=== PATIENT | male | born 1990 | race Caucasian/White ===

== ENCOUNTER 2016-09-06 21:05 | Emergency (ER) | payer OTHER ==
--- NOTE | 2016-09-06 22:20 | XRAY Preliminary Report ---
Exam: XR Ankle 3 View RT IMPRESSION: Normal ankle radiography. [facility] SITE ID: [id number]
--- NOTE | 2016-09-06 22:22 | XRAY Report ---
EXAM: RIGHT ANKLE RADIOGRAPHY EXAM DATE: 09/06/2016 09:44 PM. CLINICAL HISTORY: Rolled ankle hardly able to bear weight. COMPARISON: None. TECHNIQUE: 3 views. FINDINGS: Bones: Normal. No fractures or bone lesions. Joints: Normal. No effusion. No subluxations. The ankle mortise is normally aligned. Soft Tissues: Normal. No soft tissue swelling. IMPRESSION: Normal ankle radiography. [facility] Referring Provider Line: [phone] SITE ID: [id number]
[2016-09-06] MEDS ORDERED: IBUPROFEN 600 MG TABLET PO STA (22:55)
[2016-09-06] MEDS ORDERED: ACETAMINOPHEN 325 MG TABLET PO STA (22:55)
[2016-09-06] MEDS ORDERED: ACETAMINOPHEN 325 MG TABLET PO ONE (23:00)
[2016-09-06] MEDS ORDERED: IBUPROFEN 600 MG TABLET PO ONE (23:00)
--- NOTE | 2016-09-06 23:02 | ED Physician Documentation ---
PD HPI LOWER EXT INJURY - Stated complaint Stated Complaint: R ANKLE INJ - Chief complaint Chief Complaint: Ext Problem - History obtained from History obtained from: Patient - History of Present Illness PD HPI LOW EXT INJURY LOCATION: Right, Ankle Type of injury: Twist Timing - onset: Today Timing - details: Abrupt onset, Still present Worsened by: Moving, Palpating, Other (walking) Associated symptoms: Swelling. No: Weakness, Numbness Similar symptoms before: Has not had sx before Recently seen: Not recently seen Review of Systems Constitutional: denies: Fever, Chills Skin: denies: Abrasion (s), Laceration (s) Neurologic: denies: Focal weakness, Numbness PD PAST MEDICAL HISTORY - Past Medical History Cardiovascular: None Respiratory: None Neuro: None Endocrine/Autoimmune: None GI: None : None HEENT: None Psych: None Musculoskeletal: None Derm: None - Past Surgical History Past Surgical History: No - Present Medications Home Medications: Ambulatory Orders Medication Instructions Recorded Confirmed No Known Home Medications [No 09/06/16 09/06/16 Known Home Medications] - Allergies Allergies/Adverse Reactions: Allergies Allergy/AdvReac Type Severity Reaction Status Date / Time No Known Drug Allergies Allergy Verified 09/06/16 21:13 - Social History Does the pt smoke?: No Smoking Status: Former smoker Does the pt drink ETOH?: Yes Does the pt have substance abuse?: No - Immunizations Immunizations are current?: Yes PD ED PE NORMAL - Vitals Vital signs reviewed: Yes - General General: Alert and oriented X 3, No acute distress, Well developed/nourished - HEENT HEENT: Atraumatic - Neck Neck: Supple, no meningeal sign, No bony TTP - Derm Derm: Normal color, Warm and dry - Extremities Extremities: Other (right ankle with lateral swelling. Achilles not tender. Normal color and cap refill in toes. Foot distally not tender. No gross laxity on stress testing.) - Neuro Neuro: Alert and oriented X 3, No motor deficit, No sensory deficit, Normal speech Results - Vitals Vitals: Oxygen O2 Source Room air - Rads (name of study) ankle Radiology: Prelim report reviewed (no fractures), EMP read contemporaneously ( no fracture) PD MEDICAL DECISION MAKING - ED course Complexity details: reviewed results, considered differential, d/w patient Departure - Departure Disposition: Home, Self Care Clinical Impression: Ankle sprain Qualifiers: Encounter type: initial encounter Involved ligament of ankle: other ligament Laterality: right Qualified Code(s): S93.491A - Sprain of other ligament of right ankle, initial encounter Condition: Stable Record reviewed to determine appropriate education?: Yes Instructions: ED Sprain Ankle W X Ray Follow-Up: ROSEY Hernandes [Provider Group] Comments: Ankle brace when up and around for 2-3 weeks until fully healed. Crutches as needed initially for pain, and progress weight bearing as able. Ibuprofen 3 times daily, and add Tylenol if needed. Recheck if not better over the next several days to a week. Forms: Activity restrictions Discharge Date/Time: 09/06/16 23:05
[2016-09-06 23:10] VITALS: BP 144/74
== END 2016-09-06 23:05 | disposition home or self-care (01) ==
LOC: ED 21:05
DX: S93.401A Sprain of unspecified ligament of right ankle, initial encounter (principal); Z87.891 Personal history of nicotine dependence
CPT/HCPCS: 73610; 99282; 99283; A9270

== ENCOUNTER 2022-06-30 10:17 | Outpatient (CLI) | payer OTHER ==
[2022-06-30 11:02] VITALS: BP 150/100
--- NOTE | 2022-06-30 11:02 | SLEEP CARE CONSULTATION ---
Information from patient questionnaire entered by Ayde Sheth. I have reviewed and concur with the information entered by Ayde Sheth. This document represents the service I personally performed and the decisions made by me, Angie Rojas ARNP. History of Present Illness Service Date and Time: 06/30/2022 1017 Reason for Visit: New patient Chief Complaint: reports: Unrefreshed sleep, Snoring, Observed pauses in breathing, Frequent awakenings at night Date of Onset: 3-4YRS Usual bedtime: 10PM Time it takes to fall asleep: 30-60MIN Snores at night: Yes Observed to quit breathing while asleep: Yes Sleeps alone due to snoring: No Number of times waking at night: 5+ Reasons for waking at night: reports: Gasping for air, Other (UNKNOWN; temperature). denies: Choking, Snoring Toss, Turn, or Twitch while sleeping: Yes Recalls having dreams: Yes Usually gets out of bed at: 6AM; weekends 0800 Feels refreshed in the morning: No Morning headache: Yes (3 days a week; last about an hour) Sleepy or fatigued during the day: Yes Ever fallen asleep while driving: No Takes day naps: Yes (only on weekends for 30-60 minutes) Dreams during day naps: No Prior sleep studies: Yes Year and Where: 10/2018 [facility] Additional HPI information: I had the pleasure of seeing NAN MELENDEZ today regarding the possibility of him having a sleep disorder. His current complaints are unrefreshed sleep, snoring, observed pauses in breathing and frequent night awakenings. He states he has had a previous sleep study in about 2018 and was placed on a CPAP machine. 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 He has not used it since about 2019. His sleep is not as regenerative as it has been in the past. He snores but his girlfriend states it is not every night. She has noted some pauses in breathing. She can still sleep in same room. - Parasomnia Symptoms Ever been unable to move upon waking from sleep: Yes (2-3 times in life) Walks in sleep: Yes (not for a "while") Talks in sleep: Yes Ever acted out dreams in sleep: No Ever felt weak in the knees when startled or emotional: No Bothered by creepy, crawly, restless sensations in legs: Yes (leg moving in bed, without conciously doing it) Problems with memory or concentration: Yes (both; concentration worse, hx of ADHD) Subjective Initial Troutman Sleepiness Scale score: 8 (06/25/22) Past Medical History Past Medical History: reports: Anxiety, Depression, Attention deficit Social History The patient's occupation is a AM. Patient is Single and lives in . Have you smoked in the past 12 months: No Alcohol use: Yes Alcohol amount and frequency: 2-3 BEERS 1-2 X MONTH Caffeine use: Yes Caffeine amount and frequency: 2-3 DAILY Family History Family history of sleep disordered breathing: Yes Family Hx Sleep Apnea: Father: Snoring, Sleep apnea - Untreated, Sibling: Snoring, Sleep apnea - Untreated, Grandparent: Snoring, Sleep apnea - Untreated Allergies and Home Medications Known drug allergies: No Drug allergies reviewed: Yes Home medication list reviewed: Yes Allergy and home medication list: Allergies No Known Drug Allergies Allergy (Verified 06/29/22 13:30) Medications: Adderall ER 20 mg, daily Review of Systems Weight gain over past 5 years: 50 Cardiovascular: reports: high blood pressure (in Dr office, resolved with diet changes) Respiratory: denies: shortness of breath Gastrointestinal: reports: heartburn, diarrhea, abdominal pain Neurological: denies: headaches, head trauma Psychiatric: reports: Attention Deficit Hyperactivity, anxiety, depression Ear/Nose/Throat: reports: wisdom teeth removed. denies: injury to nose, tonsillectomy Endocrine: denies: thyroid disease Musculoskeletal: reports: joint pain, neck pain, back pain Physical Exam Vital signs obtained and entered by: AYDE Dee MA Blood Pressure: 150/100 (LEFT ARM; 148/100, recheck) Cuff size: regular Heart Rate: 87 O2 Saturation: 97 Height: 6 ft 4 in Weight: 275 lb 12.8 oz Body Mass Index: 33.5 BMI Classification: Obese Neck circumference: 17.5 Mouth and throat: narrow oropharynx Soft palate: long Hard palate: normal Uvula: normal Uvula visualization: 25% Mallampati Class III Tongue: enlarged in size with teeth olsen on lateral edges Tonsils: small Neck: normal w/o lymphadenopathy or thyromegaly Heart: regular rate and rhythm Lungs: clear bilaterally Impression and Plan 1. Suspected Obstructive Sleep Apnea-Hypopnea Syndrome, as previously diagnosed and as suggested by a history of loud and irregular snoring, observed cessation of breath while asleep, gasping or choking in sleep, morning headache, frequent awakening during the night, unrefreshed sleep and cognitive impairment. Narrow oropharynx and obesity are common predisposing factors for obstructive sleep apnea-hypopnea syndrome. I recommend proceeding to polysomnography to confirm the diagnosis and to assess severity. If the patient has significant sleep disordered breathing, a manual CPAP titration study will also be performed to find the optimal treatment pressure. I informed the patient of what the sleep studies involve and after some discussion, obtained agreement to proceed. The pathophysiology of obstructive sleep apnea-hypopnea syndrome was discussed with the patient and health risks of cardiovascular and cerebrovascular disease if not treated. Risks of drowsy driving discussed in detail and patient advised to avoid long distance driving and to last puller at the first sign of drowsiness. Patient agreed to plan. 2. Elevated blood pressure reading during office visit. Patient had an initial blood pressure of 150/100 and follow up 148/100 at end of visit. He states 15-20 minutes prior to coming in for visit he had an energy drink. He states he has had elevate blood pressures in the past that resolved with some diet changes. He denies chest pain, shortness of breath, headache or dizziness at this time. He feels well. He was encouraged to follow up with PCP as needed. * Schedule polysomnography * Avoid long distance driving or driving when feeling sleepy. * Avoid alcohol, sedative and muscle relaxant around bedtime. * Attempt to lose weight. * Review instructions provided by trained office staff on how to prepare for the sleep study. * Return for follow-up after sleep study completed. Counseling Topics: Weight loss health impact Visit Type: In Office Time Spent with Patient (minutes): 31 Provider Statement: I spent 100% of the Face to Face Visit with the patient with greater than 50% spent counseling the patient and coordination of care.
== END 2022-06-30 10:18 | disposition home or self-care (01) ==
LOC: SC 10:17
PROVIDERS: ATTEND Nurse Practitioner Family
DX: G47.33 Obstructive sleep apnea (adult) (pediatric) (principal); E66.9 Obesity, unspecified; Z68.33 Body mass index [BMI] 33.0-33.9, adult
CPT/HCPCS: 99203; 99212